=== PATIENT | male | born 1960 | race Caucasian/White ===

== ENCOUNTER 2022-03-23 11:10 | Emergency (ER) | payer MEDICAID, SELFPAY ==
[2022-03-23 11:27] VITALS: BP 158/102; PULSE 97; RESP 16; TEMP 36.5; O2SAT 96
--- NOTE | 2022-03-23 11:56 | W.ED.BACK ---
HPI - Back Pain/Injury General: Chief Complaint: Back Pain/Injury Stated Complaint: Back Pain Time Seen by Provider: 03/23/22 11:55 History of Present Illness: Mr. Gayle is a 61-year-old male with history of hypertension and hyperlipidemia presenting to the emergency department due to neck and shoulder pain. Does report a history of similar however over the past 4 days has been markedly worse. Symptoms have been severe to the point of preventing him from sleep. Worse with movement though does not go with rest. Denies new specific provoking event. No other specific changes in health, exacerbating, or alleviating factors identified. Onset (ago): day(s) Timing: progressively worsening Severity: severe Exacerbating factors: movement Relieving factors: none Context: unknown Associated symptoms: Reports no associated symptoms Treatments prior to arrival: cold therapy, heat therapy, NSAIDS and acetaminophen Review of Systems General: Reports: 10 or more systems reviewed and unremarkable except in HPI and below PFSH ED PFSH: Medical History (Updated 03/23/22 @ 14:05 by Negro Ontiveros MD) EZEQUIEL inhibitor intolerance ASHD (arteriosclerotic heart disease) HTN (hypertension) Hyperlipidemia Obesity Tobacco abuse, in remission Surgical History S/P CABG (coronary artery bypass graft) Family History Father Hypertension Mother Hypertension Hyperlipidemia CAD (coronary artery disease) Brother Hypertension Social History Smoking and tobacco status: former smoker Alcohol intake: never Marital status: Single service: No Current occupational status: retired and disabled Previous occupational history: CONSTRUCTION Physical Exam Const: COMMON NORMALS: alert GENERAL APPEARANCE: cooperative and well developed HENMT: COMMON NORMALS: normocephalic and atraumatic HEAD & SCALP: normocephalic and atraumatic Eye: COMMON NORMALS: conjunctivae normal CONJUNCTIVA: Yes conjunctivae normal SCLERA: sclerae normal Neck/C-Spine: COMMON NORMALS: supple GENERAL: Yes trachea midline CERVICAL SPINE: No Cervical spine tenderness and Yes Paracervical muscle tenderness Resp: COMMON NORMALS: clear to auscultation bilaterally EFFORT & INSPECTION: Yes able to speak in complete sentences AUSCULTATION: clear to auscultation bilaterally Cardio: COMMON NORMALS: regular rate and regular rhythm RATE: regular rate RHYTHM: regular rhythm GI: COMMON NORMALS: Soft to palpation PALPATION: Yes Soft to palpation and No Tenderness to palpation present (GI) Extremity: GENERAL: Yes normal exam except as noted and No edema Neuro: COMMON NORMALS: moves all extremities SENSORIUM/ORIENTATION: Yes alert and No Orientation impaired Psych: COMMON NORMALS: mental status grossly normal and Normal thought process present THOUGHT PROCESS: Normal thought process present Course Vital Signs: Vital signs: Vital Signs Temperature 97.7 F 03/23/22 11:27 Pulse Rate 97 03/23/22 11:27 Respiratory Rate 14 03/23/22 13:29 Blood Pressure 158/102 03/23/22 11:27 Pulse Oximetry 95 03/23/22 13:29 Oxygen Delivery Me thod 03/23/22 11:27 MDM - Back Pain/Injury Medical Decision Making 61-year-old male presenting with back pain, previously seen in outside hospital earlier today with reportedly negative limited work-up. Exam as above CT scans with arthritis and multilevel degenerative changes. Based on exam combined with imaging no emergent need for spine surgery consult. Patient somewhat improved with muscle relaxer and analgesia. Plan to have outpatient follow-up with orthopedic spine. The results of ED evaluation were discussed with the patient including prescriptions and/or symptomatic cares (if applicable) including appropriate and responsible use, followup plan, and return precautions. The patient verbalized understanding and felt safe for discharge. Medical Records I reviewed the patient's medical records. Labs I reviewed the patient's lab results. Radiology Impressions Cervical Spine CT 03/23/22 12:20 IMPRESSION: Arthritis with multilevel foraminal narrowing and multilevel spinal stenosis. No fracture. Shoulder CT 03/23/22 12:20 IMPRESSION: No fracture. Mild arthritic changes. Discharge Plan Discharge Patient Disposition: Home Clinical Impression: Neck pain, Degenerative cervical disc Condition: Stable Prescriptions: New oxycodone 5 mg tablet 5 mg PO Q4H PRN (Reason: pain) Qty: 20 0RF No Action Spiriva with HandiHaler 18 mcg capsule, w/inhalation device 1 cap INHALATION DAILY beclomethasone dipropionate 80 mcg/actuation aerosol INHALATION BID albuterol sulfate [Proventil HFA] 90 mcg/actuation HFA aerosol inhaler 2 puff INHALATION Q6H PRN amlodipine 5 mg tablet 5 mg PO DAILY atorvastatin 20 mg tablet 10 mg PO DAILY Discharge Orders: Discharge ED (Routine); Ordered 03/23/22 Ordered By: Negro Ontiveros Referrals: Nixon Hazel NP [Primary Care Provider] - Discharge Diet: Usual diet Discharge Activity: Increase activity as tolerated Patient Instructions: Cervical Spinal Stenosis (ED), Cervical Radiculopathy (ED), Degenerative Disc Disease (ED), Opioid Safety, Pain Management Activity Restrictions/Additional Instructions: Thank you for visiting the emergency department. You were seen evaluated for neck pain. The most likely cause of your symptoms is exacerbation of underlying degenerative disc disease and spinal stenosis. I will message case management for follow-up with orthopedic spine. Please continue your previously prescribed steroids, I will prescribe oxycodone, do not take oxycodone with tramadol. Please follow-up with a primary care provider. Return to the emergency department for uncontrolled pain or anything else that you are concerned about a feel needs emergency department evaluation. Coding Level of Care Code ED Fish Bin Tender for Alexys Fwphylicia Exam Comprehensive
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
[2022-03-23 12:36] VITALS: RESP 15
[2022-03-23] MEDS: diazePAM 2 mg Tablet PO (12:36)
[2022-03-23] MEDS: ketorolac 30 mg/mL INJ IM (12:36)
[2022-03-23] MEDS: morphine 4 mg/mL SDV 1 mL IM (12:36)
[2022-03-23 13:29] VITALS: RESP 14; O2SAT 95
[2022-03-23] MEDS: oxyCODONE 5 mg IR Tab/Cap PO (13:29)
--- NOTE | 2022-03-23 14:34 | DCPLANNER ---
Addendum entered by Tierra Eid 04/06/22 15:32: Patient had a follow up appointment scheduled with ortho - patient did attend appointment. Original Note: manager talent had message to schedule a follow up appointment for patient with ortho. manager talent sent patients information to the front office staff at ortho. Patients information will be printed and reviewed. Clinic will call patient with appointment information.
== END 2022-03-23 14:15 | disposition home or self-care (01) ==
PROVIDERS: Emergency Provider Emergency Medicine; PCP Nurse Practitioner Family
DX: M50.30 Other cervical disc degeneration, unspecified cervical region (principal); I10 Essential (primary) hypertension; E78.5 Hyperlipidemia, unspecified; Z95.1 Presence of aortocoronary bypass graft; Z87.891 Personal history of nicotine dependence
CPT/HCPCS: 72125; 73200; 96372; 99285; J1885; J2270

== ENCOUNTER 2022-04-02 | Outpatient (CLI) | payer MEDICAID, SELFPAY | END 2022-04-02 23:00 | disposition home or self-care (01) | LOC: RAD 04-15 11:08 | PROVIDERS: PCP Nurse Practitioner Family; Visit Provider Physician Assistant | DX: M47.22 Other spondylosis with radiculopathy, cervical region (principal); M50.322 Other cervical disc degeneration at C5-C6 level | CPT/HCPCS: 99203 ==

== ENCOUNTER → 2022-04-02 14:31 | Outpatient (BNVA) | payer MEDICAID, SELFPAY | PROVIDERS: PCP Nurse Practitioner Family; Visit Provider Physician Assistant | DX: M48.02 Spinal stenosis, cervical region (principal) | CPT/HCPCS: 72050 ==

== ENCOUNTER → 2022-04-27 13:19 | Outpatient (BNVA) | payer MEDICAID, SELFPAY | PROVIDERS: PCP Nurse Practitioner Family; Visit Provider Surgery | DX: Z86.010 Personal history of colon polyps (principal); Z80.0 Family history of malignant neoplasm of digestive organs | CPT/HCPCS: 99213 ==

== ENCOUNTER 2022-05-13 07:44 | Day surgery (SDC) | payer MEDICAID, SELFPAY ==
[2022-05-08 10:03] VITALS: BMI 32.5
[2022-05-13 07:54] VITALS: BP 179/94; PULSE 84; RESP 18; TEMP 36.3; O2SAT 95
[2022-05-13] MEDS: sodium chloride 0.9% 1,000 ML 30 ML IV (08:02)
--- NOTE | 2022-05-13 08:23 | ANES.PREANE2 ---
Pre-Anesthetic Assessment Height/Weight: Height 1.83 m Weight 108.862 kg Temp Pulse Resp BP Pulse Ox O2 Del Method 97.4 F L 84 18 179/94 95 05/13/22 07:54 05/13/22 07:54 05/13/22 07:54 05/13/22 07:54 05/13/22 07:54 05/13/22 07:54 Operation Date: 05/13/22 09:15 Proposed Procedures p Colonoscopy 36540,Z80.0,Z86.010,Z12.11(Not Applicable) - Mario Ervin DO Familial anesthetic complications: None Was Beta Luis Angel taken within 24 hours: N/A Was Clonidine taken within 24 hours: N/A Last intake: Intake Last Liquid Date 05/12/22 Last Liquid Time 20:00 Last Solid Date 05/11/22 Last Solid Time 19:00 Social No alcohol and No tobacco Airway Mallampati: Class IV Dentition: other (missing) Comments: Comments: full tubbs CV/HEM Coronary Artery Disease (cabg - able to achieve > 4 METS w/out symptoms) and Hypertension Metabolic Hyperlipidemia Anesthetic Plan ASA status: 3 Anesthesia: MAC Risk of > 500 ml blood loss (7ml/kg in children): No Medications/Allergies Home Medications Medication Instructions Recorded Confirmed Last Taken Type albuterol sulfate 90 mcg/actuation 2 puff inhalation Q6H PRN 06/20/19 05/08/22 05/12/22 History aerosol inhaler (Proventil HFA) Shortness Of Breath amlodipine 5 mg tablet 5 mg PO DAILY 06/20/19 05/08/22 05/12/22 History beclomethasone dipropionate 80 80 mcg inhalation BID 06/20/19 05/08/22 05/12/22 History mcg/actuation aerosol inhaler tiotropium bromide 18 mcg capsule 1 cap inhalation DAILY 06/20/19 05/08/22 05/12/22 History with inhalation device (Spiriva with HandiHaler) atorvastatin 20 mg tablet 10 mg PO DAILY 01/04/20 05/08/22 05/11/22 History diazepam 5 mg tablet (Valium) 5 mg PO TID PRN muscle 04/02/22 05/08/22 05/06/22 Rx spasm/anxiety #20 tabs tramadol 50 mg tablet 50 mg PO Q4H PRN pain #40 tabs 04/02/22 05/08/22 05/06/22 Rx Allergies Allergy/AdvReac Type Severity Reaction Status Date / Time codeine Allergy Unknown Unknown Verified 05/08/22 09:57 paroxetine Allergy Unknown Unknown Verified 05/08/22 09:57 Current Medications Generic Name Dose Route Start Last Admin Trade Name Freq PRN Reason Stop Dose Admin Sodium Chloride 1,000 mls @ 30 mls/hr 05/13/22 08:00 05/13/22 08:02 Sodium Chloride 0.9% IV 05/14/22 07:59 30 mls/hr .Q24H ROZINA Administration PFSH Anesthesia Medical History (Updated 04/27/22 @ 13:43 by Mario Ervin DO) EZEQUIEL inhibitor intolerance ASHD (arteriosclerotic heart disease) Diverticulosis Family history of colon cancer History of colon polyps HTN (hypertension) Hyperlipidemia Male circumcision Obesity Tobacco abuse, in remission Surgical History Hx of colonoscopy with polypectomy S/P appendectomy S/P CABG (coronary artery bypass graft) Family History Father Hypertension Mother Hypertension Hyperlipidemia CAD (coronary artery disease) Brother Hypertension Social History Smoking and tobacco status: former smoker Alcohol intake: never Marital status: Single service: No Current occupational status: retired and disabled Previous occupational history: CONSTRUCTION Data Anesthesia Cardiac Studies: No Data to Display
--- NOTE | 2022-05-13 09:38 | W.PM.OPSUD ---
Surgery/Procedure H&P Update DATE OF PROCEDURE: May 13, 2022 DATE H&P PERFORMED: 04/27/22 PLANNED PROCEDURE: Operation Date: 05/13/22 09:15 Proposed Procedures p Colonoscopy 64001,Z80.0,Z86.010,Z12.11(Not Applicable) - Mario Ervin DO
[2022-05-13 10:04] VITALS: BP 138/73; PULSE 102; RESP 20; TEMP 37.1; O2SAT 94
[2022-05-13 10:14] VITALS: BP 131/96; PULSE 105; RESP 20; O2SAT 93
--- NOTE | 2022-05-13 12:06 | ANE.PACU2 ---
Inpatient post-anesthesia follow up: Airway intact: Yes Vital signs: Temperature 98.7 F Pulse Rate 105 Respiratory Rate 20 Blood Pressure 131/96 Pulse Oximetry 93 Oxygen Delivery Me thod Room Air Oxygen Flow Rate 3 Fraction of Inspir ed Oxygen Hydration adequate: Yes Nausea and vomiting: No Pain level: 1 Mental status: Baseline
== END 2022-05-13 10:32 | disposition home or self-care (01) ==
PROVIDERS: PCP Nurse Practitioner Family; Visit Provider Surgery
PROC: 0DJD8ZZ Inspection of Lower Intestinal Tract, Via Natural or Artificial Opening Endoscopic (ICD-10-PCS; CPT 45378; principal; 2022-05-13 09:15)
DX: Z12.11 Encounter for screening for malignant neoplasm of colon (principal); Z80.0 Family history of malignant neoplasm of digestive organs; Z86.010 Personal history of colon polyps; K57.30 Diverticulosis of large intestine without perforation or abscess without bleeding; K64.8 Other hemorrhoids; I25.10 Atherosclerotic heart disease of native coronary artery without angina pectoris; Z95.1 Presence of aortocoronary bypass graft; I10 Essential (primary) hypertension; E78.5 Hyperlipidemia, unspecified; E66.9 Obesity, unspecified; Z68.32 Body mass index [BMI] 32.0-32.9, adult; Z87.891 Personal history of nicotine dependence
CPT/HCPCS: 45378; J2704; J7030

== ENCOUNTER → 2022-05-14 15:02 | Outpatient (BNVA) | payer MEDICAID, SELFPAY | PROVIDERS: PCP Nurse Practitioner Family; Visit Provider Internal Medicine | DX: I25.10 Atherosclerotic heart disease of native coronary artery without angina pectoris (principal); J40 Bronchitis, not specified as acute or chronic; I10 Essential (primary) hypertension; E78.5 Hyperlipidemia, unspecified; E66.9 Obesity, unspecified; Z68.34 Body mass index [BMI] 34.0-34.9, adult; Z87.891 Personal history of nicotine dependence; Z95.1 Presence of aortocoronary bypass graft | CPT/HCPCS: 99213 ==

== ENCOUNTER → 2022-10-20 09:32 | Outpatient (BNVA) | payer MEDICAID, SELFPAY | PROVIDERS: PCP Nurse Practitioner Family; Visit Provider Physician Assistant | DX: M47.22 Other spondylosis with radiculopathy, cervical region (principal); M50.30 Other cervical disc degeneration, unspecified cervical region; M47.812 Spondylosis without myelopathy or radiculopathy, cervical region | CPT/HCPCS: 99213 ==

== ENCOUNTER → 2023-05-13 14:42 | Outpatient (BNVA) | payer MEDICAID, SELFPAY | PROVIDERS: PCP Nurse Practitioner Family; Visit Provider Internal Medicine | DX: I25.10 Atherosclerotic heart disease of native coronary artery without angina pectoris (principal); J40 Bronchitis, not specified as acute or chronic; I10 Essential (primary) hypertension; E78.5 Hyperlipidemia, unspecified; E66.9 Obesity, unspecified; Z68.35 Body mass index [BMI] 35.0-35.9, adult; Z87.891 Personal history of nicotine dependence; Z95.1 Presence of aortocoronary bypass graft | CPT/HCPCS: 99214 ==

== ENCOUNTER → 2024-04-20 13:13 | Outpatient (BNVA) | payer MEDICAID, SELFPAY | PROVIDERS: PCP Nurse Practitioner Family; Visit Provider Specialist | DX: M65.341 Trigger finger, right ring finger; M65.30 Trigger finger, unspecified finger; Z01.818 Encounter for other preprocedural examination | CPT/HCPCS: 73130; 80053; 81001; 85025; 99203 ==

== ENCOUNTER → 2024-05-09 10:55 | Outpatient (BNVA) | payer MEDICAID, SELFPAY | PROVIDERS: PCP Nurse Practitioner Family; Visit Provider Internal Medicine | DX: I25.118 Atherosclerotic heart disease of native coronary artery with other forms of angina pectoris (principal); I10 Essential (primary) hypertension | CPT/HCPCS: 99215 ==

== ENCOUNTER 2024-05-19 10:26 | Observation (INO) | payer MEDICAID, SELFPAY ==
--- NOTE | 2024-05-18 11:49 | PC.NURSE ---
attempted to call patient to give pre cath instructions and to see if patient would be willing to change procedure time to 0700 but no answer, left message.
[2024-05-19] MEDS: diphenhydrAMINE 50 mg Capsule PO (08:30)
[2024-05-19] MEDS: aspirin 325 mg Tablet PO (08:30)
[2024-05-19 08:44] VITALS: BP 160/78; PULSE 98; RESP 20; TEMP 36.4; O2SAT 97; BMI 34.3
--- NOTE | 2024-05-19 08:47 | PC.NURSE ---
patient does not have a ride nor anyone to stay with him for the next 24 hours. This nurse spoke with the house shorer. Plan to keep the patient overnight and be discharged tomorrow once sedation has worn off. Dr. Rob montano.
--- NOTE | 2024-05-19 08:48 | P.HPUD_ITS ---
Surgery/Procedure H&P Update DATE OF PROCEDURE: May 19, 2024 DATE H&P PERFORMED: 05/09/24 H&P UPDATE INFORMATION: I have reviewed H&P completed within last 30 days, I have examined patient prior to procedure and No changes to prior documentation PREOP DIAGNOSIS: Worsening angina PRIMARY INDICATION FOR PROCEDURE: Worsening angina PLANNED PROCEDURE: Operation Date: 05/19/24 10:00 Proposed Procedures p Cardiac Catheterization - [facility] w/wo LV & Coros(Left) - Ankur Rivas M.D Possible percutaneous coronary intervention PATIENT REASSESSED PRIOR TO SEDATION, WITH NO CHANGE NOTED: Yes PHYSICAL EXAM: alert, oriented x 3, clear to auscultation bilaterally and r egular rate & rhythm AIRWAY EVAL/ANESTHESIA PLAN: normal airway, ASA III, Local Anesthesia, Risks, benefits & alternatives of sedation and/or procedure discussed and Patient ag jabier to continue as planned ADDITIONAL INFORMATION: Moderate sedation
[2024-05-19 08:58] LABS: Basophils % 0.1 %; Eosinophils % 0.1 %; Hematocrit 33.2 % (37-53); Lymphocytes % 12.7 %; Mean Corpuscular HGB Conc 32.8 g/dL (30-55); Mean Corpuscular Hemoglobin 27.7 pg (27-33); Mean Corpuscular Volume 84.5 fl (82-101); Mean Platelet Volume 9.5 fL (7.4-10.4); Monocytes # 0.8 10^3/uL (0.2-0.9); Neutrophils # 5.97 10^3/uL (1.8-7.7); Neutrophils % 76.6 %; Nucleated Red Blood Cells % 0 %; Platelet Count 220 10^3/cmm (157-399); Red Blood Count 3.93 10^6/uL (3.85-5.65); Red Cell Distribution Width 13.6 % (12.1-15.1)
--- NOTE | 2024-05-19 09:00 | XACV_ITS ---
Exam Room: 2 Ht: 183 cm Wt: 115 kg BSA: 2.45 m2 Gender: Male : 1960 Any Known Allergies: Other Exam Priority: Routine Procedure(s): Procedure Description: Diagnostic procedure Procedure Description: Venous Graft Catheterization Procedure Description: NAVARRETE Graft Catheterization Procedure Description: Coronary Angiography Diagnostic Cath Status: Elective Diagnostic Findings * Left Main has distal severe 80% stenosis. * Left Anterior Descending gives rise to 2 medium sized diagonals after which it is totally occluded in the mid segment with competitive flow seen from NAVARRETE. * Proximal left circumflex artery has severe 95% stenosis. OM branches are occluded. AV groove left circumflex artery has diffuse disease. * Proximal RCA has severe stenosis. Mid Right Coronary Artery: chronic total occlusion, INA: 0 flow. * Bypass grafts: NAVARRETE to LAD is patent. SVG to OM is patent. SVG to RCA is aneurysmal however is patent.. * Coronary angiography shows right dominance. Conclusions 1. Severe multivessel [place] coronary artery disease. Bypass grafts are patent. 2. Patient has prior CABG. Recommendations * Aggressive medical therapy. If chest pain continues, can consider stress test and if abnormal in diagonal artery territory, can consider PCI of distal left main. * Outpatient cardiology follow up in 2 weeks. Pressures Phase:Rest AO : 118 / 60 ( 78 ) @ 9:27:00 AM Clinical Evaluation EBL: 5mL-10mL Procedural Details Procedure Consent Obtained. Admit Source: Out Patient. Pre-Procedure Time Out. Identified patient by full name and date of as verbalized by the patient/guarantor. Does the consent match the physician's order: Yes. Accurate & Complete Informed Consent: Yes. Inpatient/Outpatient History & Physical on Chart: Yes. If H&P is completed, is and addenduem needed: No; If yes, is the addendum complete: N/A. Visualize and Verify Site with Patient/Guarantor: N/A. Relevant Radiology Images available: N/A. The risks, benefits, and alternatives of sedation and/or procedure were discussed by physician. The patient agrees to continue. Procedure started. [facility] Clinical Fraility Score: 4: Vulnerable. South Asian History Professor Indications: Worsening Angina. Chest Pain Symptom Assessment: Typical Angina Symptoms. Correct patient, site and procedure confirmed by cath team. Current diagnosis: Chest Pain. PERRLA. Strong, equal hand laborer livestock bilaterally. Lungs clear x 5 lobes. IV Site on Arrival: 20 gauge in the left forearm. IV Fluids: 0.9% NaCl at KVO. 0 mL infused prior to cath lab radiological technologist. Pre Procedural Pulses: bilateral radial was 2+. Pre Procedural Pulses: bilateral posterior tibial was 1+. Pre Procedural Pulses: bilateral dorsalis pedis was 2+. Oxygen started at 2liters/min via nasal canula. bilateral groins was prepped with chloroprep then draped in the usual sterile fashion. Physician notified. Baseline sample Acquired. HR: 89 BPM. Physician arrived. Physician scrubbed in. Immediate Pre-Procedure Time Out. Correct Patient: Yes; Correct Procedure: Yes; Correct Site: Yes; Correct Patient Position: Yes; Correct Supplies: Yes; Dried Flammable Prep: No; Blood Products Available: No;. Lidocaine 1% infiltrated to the right groin. Arterial access obtained with micropuncture set. A 5 danish JL4 catheter in over wire. Multiple views taken of left coronary artery. Catheter removed over the exchange wire. A 5 danish JR4 catheter in over wire. Multiple views taken of right coronary artery. SVG's to OM visualized and patent. SVG's to PDA visualized and patent. Standard wire in through catheter. Catheter repositioned. Wire out. Glidewire in through catheter. Catheter removed over the glide wire. A 5 danish JR4 catheter in over wire. Catheter removed over the glide wire. A 5 danish IM catheter in over wire. Glidewire out. Glidewire in through catheter. Catheter removed over the glide wire. A 5 danish JR4 catheter in over glidewire. Catheter removed over the glide wire. A 5 danish IM catheter in over wire. Wire out. NAVARRETE to LAD visualized. Catheter removed over the standard wire. A 5 danish MPA2 catheter in over wire. Wire out. SVG's to PDA visualized and patent. Catheter removed over the standard wire. Side port of sheath attached to Normal Saline flush at KVO to maintain patency. A Right femoral angiogram was performed to determine safe placement of closure device. A Mynx was successful obtaining hemostatsis at the Right Femoral artery insertion site. EXP 03-31-2026 LOT #[id number]. Post Procedure: Pulses reassessed and unchanged. PERRLA. Strong, equal hand laborer livestock bilaterally. No VTE prophylaxis required. Medication's Wasted: Lidocaine 1% = 10 mL. Medication's Wasted: Heparin = 4000 units. Medication's Wasted: Other = Versed 1 mg. Total IV fluids: 100 mL. Post-op diagnosis: Severe [place] CAD, Patent Bypass grafts. Complications: None. Estimated blood loss: 5mL-10mL. Responsiveness - Normal response to verbal stimuli; alert and oriented, PERRLA. Airway - Unaffected, no intervention required; spontaneous ventilation. Circulation: W/N/L, pulses unchanged. Nausea/Vomiting: No. Procedure completed. Patient transferred by bed to 1st floor. Vital chart was stopped. Access Site Site: Right Femoral artery Sheath Size: 6 Fr Hemostasis Method: Mynx Hemostasis Success: Successful Procedure Medications Start: 8:55 AM Stop: 8:55 AM Medication: Versed Amount: 1 mg Route: I.V. Start: 8:56 AM Stop: 8:56 AM Medication: Fentanyl Amount: 50 mcg Start: 9:02 AM Stop: 9:02 AM Medication: Versed Amount: 1 mg Route: I.V. Start: 9:20 AM Stop: 9:20 AM Medication: Versed Amount: 2 mg Route: I.V. Start: 9:24 AM Stop: 9:24 AM Medication: Fentanyl Amount: 25 mcg Route: I.V. Start: 9:47 AM Stop: 9:47 AM Medication: Heparin Amount: 2000 units Route: I.V. Start: 9:45 AM Stop: 9:45 AM Medication: Versed 1 mg and Fentanyl 25 mcg Route: I.V. I, the attending physician, have reviewed and verified all procedure medications. Yes, all medications given per verbal order History/Risk Factors Hypertension: Yes Dyslipidemia: Yes Peripheral Arterial Disease (PAD): No Myocardial Infarction (ME): No Obesity: No Renal Disease: No Prior Interventions PCI: No CABG: Yes Valve Surgery: No Report Signatures Finalized by Ankur Rivas MD on 05/24/2024 12:27 PM
[2024-05-19 09:17] LABS: Anion Gap 19.5 (5-19); Blood Urea Nitrogen 13 mg/dL (8-23); Calcium 8.9 mg/dL (8.5-10.5); Carbon Dioxide 21 mmol/L (22-29); Chloride 98 mmol/L (98-107); Creatinine Clr Calc Pharmacy 91.0626; Glomerular Filtration Rate 67.8 mL/min (90-130); Glucose 138 mg/dL (65-115); Osmolality Calculated 282 mOsm/kg (285-295); Potassium 3.5 mmol/L (3.5-5.1); Sodium 135 mmol/L (136-145)
--- NOTE | 2024-05-19 10:20 | PM.PROC ---
Procedure Note: Date of procedure: 05/19/24 Pre-procedure diagnosis: Worsening angina Post-procedure diagnosis: other (Severe [place] CAD/ Patent bypass grafts) Procedure: Left heart cath: Distal left main artery has severe stenosis. LAD has competitive flow from NAVARRETE. Prior to [place] vessel stenosis LAD gives rise to 2 medium sized diagonal arteries. LCX is diffusely diseased. RCA is BOOT LINER MAKER. NAVARRETE to LAD is patent. SVG to OM is patent. SVG to PDA his aneurysmal but patent. Aggressive medical therapy. If chest pain continues, can consider stress test and if abnormal in diagonal artery territory, can consider PCI of distal left main. Performing Provider: Ankur Rivas Estimated blood loss (mL): 10 Complications: None Condition: stable Disposition: floor Coding Level of Care Code Acute Code for Chg Fwphylicia
[2024-05-19 10:56] VITALS: BP 116/61; PULSE 82; RESP 25; TEMP 36.5; O2SAT 94
[2024-05-19 11:42] VITALS: BP 125/69; PULSE 84; RESP 20; TEMP 36.7; O2SAT 96
[2024-05-19] MEDS: sodium chloride 0.9% 1,000 ML 100 ML IV (12:40)
[2024-05-19 16:36] VITALS: BP 135/72; PULSE 91; RESP 15; TEMP 36.5; O2SAT 98
[2024-05-19 16:40] VITALS: PULSE 91; RESP 16; O2SAT 98
[2024-05-20 05:19] LABS: Basophils % 0.2 %; Eosinophils % 0.4 %; Hematocrit 28.2 % (37-53); Lymphocytes # 0.9 10^3/uL (0.8-4.8); Lymphocytes % 17.1 %; Mean Corpuscular HGB Conc 32.3 g/dL (30-55); Mean Corpuscular Hemoglobin 27.5 pg (27-33); Mean Corpuscular Volume 85.2 fl (82-101); Mean Platelet Volume 9.1 fL (7.4-10.4); Monocytes # 0.5 10^3/uL (0.2-0.9); Monocytes % 9.6 %; Neutrophils % 72.3 %; Nucleated Red Blood Cells % 0 %; Platelet Count 186 10^3/cmm (157-399); Red Blood Count 3.31 10^6/uL (3.85-5.65); Red Cell Distribution Width 13.7 % (12.1-15.1); White Blood Count 5.39 10^3/uL (3.29-11.43)
[2024-05-20 05:49] LABS: Anion Gap 10.6 (5-19); Blood Urea Nitrogen 13 mg/dL (8-23); Calcium 8.6 mg/dL (8.5-10.5); Carbon Dioxide 25 mmol/L (22-29); Chloride 103 mmol/L (98-107); Creatinine Clr Calc Pharmacy 91.0626; Glomerular Filtration Rate 67.8 mL/min (90-130); Glucose 111 mg/dL (65-115); Osmolality Calculated 281 mOsm/kg (285-295); Potassium 3.6 mmol/L (3.5-5.1); Sodium 135 mmol/L (136-145)
[2024-05-20 07:20] VITALS: PULSE 78; RESP 18; O2SAT 92
--- NOTE | 2024-05-20 08:08 | PM.DCS ---
Discharge Providers Date of Admission: 05/19/24 10:26 Date of Discharge: May 20, 2024 Attending Provider at Admission: Ankur Rivas M.D Attending Provider at Discharge: Ankur Rivas M.D Primary Care Provider: Nixon Hazel NP Reason for Visit Reason for Visit: I20.0 Brief History: 63-year-old man who came for outpatient coronary angiogram yesterday for worsening angina. Hospital Course Hospital Course Coronary angiogram demonstrated patent bypass grafts. Patient had no ride to go home yesterday so was observed overnight. Stayed stable. No access site complications. We will start metoprolol and as outpatient will obtain event monitor as he feels tachycardic frequently. If has more chest pain in future, can consider adding Imdur. Physical Exam Narrative: GENERAL: Patient is alert, awake and oriented x3. [] NECK: No jugular vein distension. [] HEENT: No cyanosis. No icterus. No pallor. [] HEART: Regular S1 and S2. No murmur, rub or gallop. [] LUNGS: Clear to auscultate bilaterally. [] CENTRAL NERVOUS SYSTEM: Grossly nonfocal. [] EXTREMITIES: Lower extremities with no edema bilaterally. Discharge Data Studies Completed and Pending Pending at discharge Category Date Time Status ECONOMIST RESEARCH ASSISTANT request for service Routine Exams 05/19/24 09:00 Taken Laboratory Results WBC 5.39 10^3/uL (3.29-11.43) 05/20/24 04:54 RBC 3.31 10^6/uL (3.85-5.65) L 05/20/24 04:54 Hgb 9.10 g/dL (11.27-16.99) L 05/20/24 04:54 Hct 28.2 % (37-53) L 05/20/24 04:54 MCV 85.2 fl (82-101) 05/20/24 04:54 MCH 27.5 pg (27-33) 05/20/24 04:54 MCHC 32.3 g/dL (30-55) 05/20/24 04:54 RDW 13.7 % (12.1-15.1) 05/20/24 04:54 Plt Count 186 10^3/cmm (157-399) 05/20/24 04:54 MPV 9.1 fL (7.4-10.4) 05/20/24 04:54 Neut % (Auto) 72.3 % 05/20/24 04:54 Lymph % (Auto) 17.1 % 05/20/24 04:54 Edmunds % (Auto) 9.6 % 05/20/24 04:54 Eos % (Auto) 0.4 % 05/20/24 04:54 Baso % (Auto) 0.2 % 05/20/24 04:54 Neut # (Auto) 3.90 10^3/uL (1.8-7.7) 05/20/24 04:54 Lymph # (Auto) 0.9 10^3/uL (0.8-4.8) 05/20/24 04:54 Edmunds # (Auto) 0.5 10^3/uL (0.2-0.9) 05/20/24 04:54 Eos # (Auto) 0.0 10^3/uL (0.0-0.8) 05/20/24 04:54 Baso # (Auto) 0.0 10^3/uL (0.0-0.1) 05/20/24 04:54 Nucleated RBC % (auto) 0 % 05/20/24 04:54 Nucleated RBCs # 0.0 /100WBC 05/20/24 04:54 Sodium 135 mmol/L (136-145) L 05/20/24 04:54 Potassium 3.6 mmol/L (3.5-5.1) 05/20/24 04:54 Chloride 103 mmol/L (98-107) 05/20/24 04:54 Carbon Dioxide 25 mmol/L (22-29) 05/20/24 04:54 Anion Gap 10.6 (5-19) 05/20/24 04:54 BUN 13 mg/dL (8-23) 05/20/24 04:54 Creatinine 1.1 mg/dL (0.7-1.2) 05/20/24 04:54 GFR Calculation 67.8 mL/min (90-130) L 05/20/24 04:54 Glucose 111 mg/dL (65-115) 05/20/24 04:54 Calculated Osmolality 281 mOsm/kg (285-295) L 05/20/24 04:54 Calcium 8.6 mg/dL (8.5-10.5) 05/20/24 04:54 Vitals Last Vital Signs Temp 97.7 F 05/19/24 16:36 Pulse 91 05/19/24 16:40 Resp 16 05/19/24 16:40 BP 135/72 05/19/24 16:36 Pulse Ox 98 05/19/24 16:40 O2 Del Method Room Air 05/19/24 16:40 Discharge Plan Discharge Patient Disposition: Home Condition: Stable Prescriptions: New metoprolol succinate 50 mg tablet extended release 24 hr 50 mg PO DAILY Qty: 90 3RF Continued beclomethasone dipropionate 80 mcg/actuation aerosol 80 mcg INHALATION BID albuterol sulfate [Proventil HFA] 90 mcg/actuation HFA aerosol inhaler 2 puff INHALATION Q6H PRN (Reason: Shortness Of Breath) atorvastatin 20 mg tablet 10 mg PO DAILY amlodipine 5 mg tablet 10 mg PO DAILY aspirin 81 mg tablet,delayed release (DR/EC) 81 mg PO DAILY Qty: 90 3RF nitroglycerin 0.4 mg tablet, sublingual 0.4 mg sublingual Q5M PRN (Reason: chest pain) Qty: 25 2RF Rx Instructions: do not exceed 3 doses per episode Discharge Orders: Discharge Order (Routine); Ordered 05/20/24 Ordered By: Ankur Rivas Referrals: Angy Goldman DATA ENTRY OPERATOR [Nurse Practitioner] - 1 week Discharge Diet: Cardiac Discharge Activity: Increase activity as tolerated Discharge Attestations Time Spent in Discharge Care*: less than 30 min Quality Metrics Clinical Quality Measures [ No reported AMI, CVA or VTE this stay] Coding Level of Care Code Acute Code for Chg David
[2024-05-20 08:37] VITALS: BP 128/71; PULSE 77; RESP 18; TEMP 36.6; O2SAT 95
[2024-05-20] MEDS: amlodipine 10 mg Tablet PO (09:37)
[2024-05-20] MEDS: atorvastatin 40 mg Tablet 20 MG PO (09:38)
[2024-05-20] MEDS: aspirin 81 mg EC Tablet PO (09:39)
--- NOTE | 2024-05-20 09:40 | PC.CHAP ---
Pastoral Care Encounter/Spiritual Assessment Type of Contact [] Declined laboratory coordinator visit [] Patient/Family/Request visit [] Outpatient visit [] Follow-up visit [] Physician referral [] Code/Alert [x] Routine visit [] Staff referral [] Actively dying [] Patient sleeping [] Family support [] [] Out of room [] Palliative care [] [] Receiving care in room [] Pre-surgical visit [] Trauma [] Long length of stay [] ICU visit [] Other: Relational/Emotional Strength [x] Patient feels connected with others/family/visitors/staff [] Distress [] Loneliness/isolation [] Abandonment Spirituality of Patient [x] Person of Kassidy [] Attends Latter Day of their [place] [x] Believes in Prayer [] Reads Bible or Rastafari materials [] There are Spiritual issues to be addressed Airline Security Representative Interventions [x] Prayer [x] Active listening [x] Non-anxious presence [] Spiritual/emotional support [] Crisis/trauma care [] Spiritual counseling [] Bereavement support [] Provided bereavement packet [] Provided Bible/devotional materials [] Provided toy/stuffed animal, coloring book to patient or family member [] Provided Communion [] Anointing/[place] [] Salvation [] Completed spiritual assessment [] Other: Impact on Illness or Injury [] Angry [] Fearful [] Anxious [] Often cries [] Exhaustion [] Unable to work [] Unable to attend confucianism [] Unable to walk/stand [] Unable to read [] Unable to drive [] Unable to eat/drink [] Unable to sleep [] Unable to be with family [] Patient intubated [] Other: Summary P Time spent with patient 15 Min
[2024-05-20 10:26] VITALS: BP 126/63; PULSE 77; RESP 20; O2SAT 97
--- NOTE | 2024-05-20 10:53 | PC.NURSE ---
discharge instructions given and explained.pt verb understanding of instructions.discharged via w/c to exit.pt to drive self home.
== END 2024-05-20 10:54 | disposition home or self-care (01) ==
LOC: CSU 10:55
PROVIDERS: Nurse Practitioner Family; Admitting Provider Internal Medicine; PCP Nurse Practitioner Family; Visit Provider Internal Medicine
DX: I25.110 Atherosclerotic heart disease of native coronary artery with unstable angina pectoris (principal); Z95.1 Presence of aortocoronary bypass graft; I10 Essential (primary) hypertension; E78.5 Hyperlipidemia, unspecified; E66.9 Obesity, unspecified; Z68.34 Body mass index [BMI] 34.0-34.9, adult; Z87.891 Personal history of nicotine dependence; Z80.0 Family history of malignant neoplasm of digestive organs
CPT/HCPCS: 36415; 80048; 85025; 93455; 96365; 96374; 96376; 99152; 99153; C1760; C1769; C1887; C1894; G0269; G0378; J1644; J2250; J3010; J7030; Q0163; Q9967

== ENCOUNTER → 2024-06-05 14:47 | Outpatient (BNVA) | payer MEDICAID, SELFPAY | PROVIDERS: PCP Nurse Practitioner Family; Visit Provider Internal Medicine | DX: I25.118 Atherosclerotic heart disease of native coronary artery with other forms of angina pectoris (principal); R00.0 Tachycardia, unspecified; I10 Essential (primary) hypertension; D64.9 Anemia, unspecified | CPT/HCPCS: 36415; 80048; 82728; 83540; 83550; 84439; 84443; 84466; 85025; 93005; 99214 ==

== ENCOUNTER 2024-06-14 07:59 | Oncology outpatient (recurring) (ONCR) | payer MEDICAID, SELFPAY ==
--- NOTE | 2024-06-14 09:07 | XRR_ITS ---
PROCEDURE INFORMATION: Exam: XR Chest Exam date and time: 06/14/2024 9:12 AM Age: 63 years old Clinical indication: Shortness of breath; Prior surgery; Surgery date: 6+ months; Surgery type: Triple bypass; Additional info: Cad, weakness, shortness of breath TECHNIQUE: Imaging protocol: Radiologic exam of the chest. Views: 2 views. COMPARISON: MR cervical spin wo con* [id number] 06/30/2022 2:46 PM FINDINGS: Lungs: Unremarkable. No consolidation. Pleural spaces: Unremarkable. No pleural effusion. No pneumothorax. Heart/Mediastinum: Coronary artery bypass surgery. Normal heart size and mediastinal contours. Bones/joints: Metal sternal and manubrial sutures. Minimal multilevel spondylosis. Otherwise, unremarkable. XR/XR chest 2V* [id number] IMPRESSION: Surgical changes without superimposed acute disease.
[2024-06-14 09:10] LABS: Basophils % 0.3 %; Eosinophils % 0.3 %; Lymphocytes % 12.3 %; Mean Corpuscular HGB Conc 30.9 g/dL (30-55); Mean Corpuscular Hemoglobin 25.4 pg (27-33); Mean Corpuscular Volume 82.3 fl (82-101); Mean Platelet Volume 8.7 fL (7.4-10.4); Monocytes # 0.5 10^3/uL (0.2-0.9); Monocytes % 6.9 %; Neutrophils # 6.23 10^3/uL (1.8-7.7); Neutrophils % 79.8 %; Nucleated Red Blood Cells % 0 %; Platelet Count 198 10^3/cmm (157-399); Red Blood Count 3.89 10^6/uL (3.85-5.65); Red Cell Distribution Width 14.8 % (12.1-15.1)
[2024-06-14 09:20] LABS: Reticulocyte % 2.2 % (0.5-2.0)
[2024-06-14 09:36] LABS: Alanine Aminotransferase 34 U/L (0-41); Albumin Level 3.1 g/dL (3.5-5.2); Alkaline Phosphatase 92 U/L (40-130); Anion Gap 14.6 (5-19); Aspartate Amino Transferase 33 U/L (0-40); Blood Urea Nitrogen 20 mg/dL (8-23); Carbon Dioxide 22 mmol/L (22-29); Chloride 99 mmol/L (98-107); Ferritin 572 ng/mL (30-400); Globulin 3.9 g/dL (1.3-4.6); Glomerular Filtration Rate 55.9 mL/min (90-130); Glucose 127 mg/dL (65-115); Iron 19 ug/dL (59-158); Lactate Dehydrogenase 217 U/L (135-225); Osmolality Calculated 276 mOsm/kg (285-295); Potassium 4.6 mmol/L (3.5-5.1); Sodium 131 mmol/L (136-145); Total Bilirubin 1.5 mg/dL (0.15-1.2); Total Iron Binding Capacity 210 mcg/dl; Unsaturated Iron Binding 191 ug/dL (112-347)
[2024-06-14 09:51] LABS: Vitamin B12 734 pg/mL (232-1245)
[2024-06-20 11:10] LABS: Soluble Transferrin Receptor 2.75 mg/L (0.76-1.76)
== END 2024-06-16 23:59 | disposition home or self-care (01) ==
PROVIDERS: PCP Nurse Practitioner Family; Visit Provider Internal Medicine
DX: D50.9 Iron deficiency anemia, unspecified (principal); I25.10 Atherosclerotic heart disease of native coronary artery without angina pectoris; R00.0 Tachycardia, unspecified; Z87.891 Personal history of nicotine dependence
CPT/HCPCS: 36415; 71046; 80053; 82607; 82728; 82746; 83010; 83540; 83550; 83615; 84238; 85025; 85045; 99204

== ENCOUNTER → 2024-06-19 12:55 | Outpatient (BNVA) | payer MEDICAID, SELFPAY | PROVIDERS: PCP Nurse Practitioner Family; Visit Provider Nurse Practitioner Family | DX: I25.118 Atherosclerotic heart disease of native coronary artery with other forms of angina pectoris (principal); J40 Bronchitis, not specified as acute or chronic; I10 Essential (primary) hypertension; E78.5 Hyperlipidemia, unspecified; E66.9 Obesity, unspecified; D64.9 Anemia, unspecified; Z87.891 Personal history of nicotine dependence; Z68.38 Body mass index [BMI] 38.0-38.9, adult | CPT/HCPCS: 99214 ==